=== PATIENT | female | born 1995 | race American Indian/Alaskan Native ===

== ENCOUNTER 2021-11-26 15:06 | Outpatient (CLI) | payer OTHER, MEDICAID ==
[2021-11-26 15:46] VITALS: BP 134/98
--- NOTE | 2021-11-26 17:12 | Event Note ---
Date: 11/26/21 S: Sent from [facility] as she gives a history of being sonya 22 weeks . The provider at the [facility] was unable to hear FHT's. Gisele states that she was seen at a hospital about 3 weeks ago for bleeding and thinks she may have miscarried. O: U/S here shows no IUP, no ectopic on transvaginal U/S A: No IUP P: BHCG done <1 - NEGATIVE Discussed with her, to F/U with OB as needed
--- NOTE | 2021-11-26 17:13 | Ultrasound Report ---
ULTRASOUND PELVIS INDICATION: no heart tones in the office. TECHNIQUE: Transabdominal and Transvaginal. Duplex Color Doppler used: Yes. COMPARISON: None available FINDINGS: Uterus: Present. Size: 8.3 x 4.7 x 6.8 cm. Endometrial complex: Thickened measuring 1.3 cm. No intrauterine . Mass lesions: None. Additional findings: None. Right Ovary -- Normal. Blood flow: Normal. Cyst or mass: None. Left Ovary-- abnormal. Blood flow: Normal. Cyst or mass: Complex cystic lesion measuring 2.4 cm Urinary Bladder: Normal. Free Fluid: Mild. Additional Findings: None. IMPRESSION: 1. Thickening of the endometrial stripe. No intrauterine . 2. Mild complex cystic lesion left ovary is likely a hemorrhagic cyst. 3. Mild pelvic free fluid. No suspicious adnexal abnormality. Signer Name: Oleksandr Coles MD Signed: 11/26/2021 5:08 PM Workstation Name: [id number]
== END 2021-11-26 19:01 | disposition home or self-care (01) ==
LOC: APU 15:06 → EEVIPCON 15:06 → TRG 15:06 → APU 15:08 → TRG 19:01
PROVIDERS: ATTEND Obstetrics & Gynecology Gynecology
DX: O34.82 Maternal care for other abnormalities of pelvic organs, second trimester (principal); Z3A.22 22 weeks gestation of pregnancy
CPT/HCPCS: 36415; 76801; 76817; 84702